=== PATIENT | female | born 1960 | race Caucasian/White ===

== ENCOUNTER 2019-05-02 20:18 | Observation (INO) ==
[2019-05-02] MEDS ORDERED: ZOFRAN IV ONE (20:22)
[2019-05-02] MEDS ORDERED: NS 1,000 ML IV ONE ×2 (20:22→22:49)
--- NOTE | 2019-05-02 20:29 | PROVIDER DOCUMENTATION ---
HPI-Syncope/Dizziness - General Chief Complaint: Nausea/Vomiting Stated Complaint: N/V Time Seen by Provider: 05/02/19 20:18 Source: patient Allergies/Adverse Reactions: Patient Allergies Allergy/AdvReac Type Severity Reaction Status Date / Time codeine AdvReac NAUSEA Verified 05/02/19 20:20 Home Medications: Home Medication List Medication Instructions Recorded Confirmed Last Taken Type Amlodipine Besylate 5 mg PO DAILY 06/11/17 05/03/19 Unknown History Lisinopril 40 mg PO DAILY 06/11/17 05/03/19 Unknown History Polyethylene Glycol 3350 [Miralax] 17 gm PO DAILY PRN PRN 05/03/19 05/03/19 Unknown History - History of Present Illness-Syncope/Dizzy Nature of Presenting Problem: 58 YOF PRESENTS WITH C/O N/V AND SYNCOPAL EPISODE X 2. SHE DENIES SOB, CP, FEVER, CHILLS, PALPITATIONS. If witnessed syncope, by whom?: NO WITNESS Onset/Duration: reports: just prior to arrival Timing: reports: still present Symptoms prior to episode: reports: nausea/vomiting, other (SYNCOPE) Context: reports: almost passed out Loss of Consciousness: no loss of consciousness Location of injury. (If syncope resulted in an injury.): reports: none Current Symptoms: reports: nausea, vomiting - Dizziness Severity in ED: reports: mild Dizziness Related Current/Associated Symptoms: reports: nausea/vomiting Any recent trauma/injury?: reports: none Modifying Factors: improves with: nothing Patient usually:: reports: walks without assistance Review of Systems - Adult - REVIEW OF SYSTEMS - ADULT Constitutional: reports: no symptoms reported. denies: see HPI, chills, fever, fatique, night sweats, weight gain, weight loss, other Eyes: reports: no symptoms reported. denies: see HPI, discharge, dry eyes, decreased vision, blurred vision, double vision, eye pain, redness, other Ears, Nose, Mouth & Throat: reports: no symptoms reported. denies: see HPI, ear discharge, ear pain, hearing loss, tinnitus, epistaxis, sinus problem, nose pain, loose teeth, mouth/dental pain, mouth swelling, hoarseness, throat pain, throat swelling, other Cardiovascular: reports: syncope. denies: no symptoms reported, see HPI, chest pain, edema, heart murmur, irregular heart rate, orthopnea, palpitations, poor circulation, PND, other Respiratory: reports: no symptoms reported. denies: see HPI, chronic cough, cough, dyspnea on exertion, excessive sputum production, hemoptysis, pleurisy, shortness of breath, wheezing, other Gastrointestinal: reports: nausea, vomiting. denies: no symptoms reported, see HPI, abdominal pain, hematemesis, constipation, diarrhea, difficulty swallowing, frequent heartburn, poor appetite, rectal bleeding, other Genitourinary: reports: no symptoms reported. denies: see HPI, dysuria, discharge, frequency, flank pain, frequent UTI's, hematuria, hesitency, incontinence, urinary retention, urgency, other Musculoskeletal: reports: no symptoms reported. denies: see HPI, bone pain, back pain, frequent leg cramps, joint pain, joint swelling, muscle aches, muscle weakness, neck pain, other Integumentary: reports: no symptoms reported. denies: see HPI, hives, hair loss, itching, mole changes, nail changes, rash, skin sores/ulcer, skin thickening, other Neurological: reports: dizziness/vertigo. denies: no symptoms reported, see HPI, ataxia, headache/migraines, loss of balance, numbness, paresthesia, seizure, slurred speech, syncope, tremors, other Psychiatric: reports: no symptoms reported. denies: see HPI, anxiety, anti- depressant use, alcohol/drug dependence, depression, emotional problems, insomnia, panic attacks, suicidal thoughts, other Endocrine: reports: no symptoms reported. denies: see HPI, change in skin pigment, excessive sweating, goiter, cold intolerance, heat intolerance, increased hunger, increased thirst, polyuria, other Hematologic/Lymphatic: reports: no symptoms reported. denies: see HPI, blood clots, easy bruising, low blood count, lymphedema, prolonged bleeding, swollen lymph nodes, transfusions, other Allergic/Immunologic: reports: no symptoms reported. denies: see HPI, allergic reactions, allergic rhinitis, asthma, eczema, food allergy, frequent infections, hay fever, hives, positive PPD, urticaria, other Past History - Adult - PAST MEDICAL HISTORY-ADULT Review of Records: reports: Nursing Assessment Review, Social history reviewed & non-contributory. Cardiovascular: reports: HTN Genitourinary: reports: kidney stones - PRIOR SURGERIES/PROCEDURES Surgical/Procedure History: reports: hysterectomy - IMMUNIZATION STATUS Childhood Immunizations: See Nurse Assessment Flu Vaccine: See Nurse Assessment Physical Exam-General - PHYSICAL EXAM-ADULT Initial Vital Signs Reviewed: Yes - CONSTITUTIONAL General Appearance: appears well, alert, no apparent distress - EYES Eyes: PERRL/EOMI - HEAD, EARS, NOSE, MOUTH & THROAT HENMT: normocephalic/atraumatic, moist mucous membranes, normal ENT inspection - NECK Neck: non-tender, full range of motion - RESPIRATORY Respiratory: chest non-tender, lungs clear, normal breath sounds, no pleuratic chest pain, no respiratory distress, no accessory muscle use - CARDIOVASCULAR Cardiovascular: normal peripheral pulses, regular rate, rhythm, no edema, no gallop, no JVD, no murmur - GASTROINTESTINAL (ABDOMEN) Abdominal Exam: normal bowel sounds, non tender, soft - LYMPHATIC Lymphatic: no adenopathy - MUSCULOSKELETAL Back Exam: normal inspection, no CVA tenderness, no vertebral tenderness Extremity: normal range of motion, non-tender, normal gait - SKIN Integumentary: normal color, normal turgor, warm/dry - NEUROLOGIC Neurologic: grossly normal - PSYCHIATRIC Psych/Mental Status: normal mood/affect, oriented x 3 Progress - PLAN OF CARE/RESULTS Progress/Plan/Lab Results: Laboratory Results - last 24 hr 05/02/19 05/02/19 05/02/19 20:20 20:20 20:20 WBC RBC Hgb Hct MCV MCH MCHC RDW Std Deviation Plt Count MPV Immature Gran % (Auto) Neut % (Auto) Lymph % (Auto) O'Brien % (Auto) Eos % (Auto) Baso % (Auto) Immature Gran # (Auto) Neut # (Auto) Lymph # (Auto) O'Brien # (Auto) Eos # (Auto) Baso # (Auto) Segmented Neutrophils PT INR PTT (Actin FS) 23.9 Sodium 140 Potassium 4.1 Chloride 102 Carbon Dioxide 19 L Anion Gap 18 BUN 15 Creatinine 0.6 Estimated GFR/1.73 m2 > 60 BUN/Creatinine Ratio 25 Glucose 164 H POC Glucose Calculated Osmolality 284 Calcium 9.7 Troponin T < 0.010 Urine Source Urine Color Urine Clarity Urine pH Ur Specific [place] Urine Protein Urine Ketones Urine Blood Urine Nitrite Urine Bilirubin Urine Urobilinogen Urine Microscopic RBC Urine WBC Urine Microscopic WBC Ur Epithelial Cells Urine Crystals Urine Bacteria Urine Casts Urine Yeast Urine Glucose Urine Opiates Screen Ur Oxycodone Screen Urine Methadone Screen U Propoxyphene Qual Ur Barbituates Screen Ur Tricyclics Screen Ur Phencyclidine Scrn Ur Amphetamines Screen U Methamphetamines Scrn U Benzodiazepines Scrn Urine Cocaine Screen U Cannabinoids Screen 05/02/19 05/02/19 05/02/19 20:20 20:20 20:28 WBC 11.01 H RBC 5.38 Hgb 16.1 H Hct 46.0 MCV 85.5 MCH 29.9 MCHC 35.0 RDW Std Deviation 12.7 Plt Count 281 MPV 10.2 Immature Gran % (Auto) 0.5 Neut % (Auto) 85.9 H Lymph % (Auto) 10.4 L O'Brien % (Auto) 3.0 Eos % (Auto) 0.0 Baso % (Auto) 0.2 Immature Gran # (Auto) 0.06 H Neut # (Auto) 9.45 H Lymph # (Auto) 1.15 L O'Brien # (Auto) 0.33 Eos # (Auto) 0.00 Baso # (Auto) 0.02 Segmented Neutrophils Not Reportable PT 11.9 INR 0.84 PTT (Actin FS) Sodium Potassium Chloride Carbon Dioxide Anion Gap BUN Creatinine Estimated GFR/1.73 m2 BUN/Creatinine Ratio Glucose POC Glucose 139 H Calculated Osmolality Calcium Troponin T Urine Source Urine Color Urine Clarity Urine pH Ur Specific [place] Urine Protein Urine Ketones Urine Blood Urine Nitrite Urine Bilirubin Urine Urobilinogen Urine Microscopic RBC Urine WBC Urine Microscopic WBC Ur Epithelial Cells Urine Crystals Urine Bacteria Urine Casts Urine Yeast Urine Glucose Urine Opiates Screen Ur Oxycodone Screen Urine Methadone Screen U Propoxyphene Qual Ur Barbituates Screen Ur Tricyclics Screen Ur Phencyclidine Scrn Ur Amphetamines Screen U Methamphetamines Scrn U Benzodiazepines Scrn Urine Cocaine Screen U Cannabinoids Screen 05/02/19 05/02/19 21:05 21:05 WBC RBC Hgb Hct MCV MCH MCHC RDW Std Deviation Plt Count MPV Immature Gran % (Auto) Neut % (Auto) Lymph % (Auto) O'Brien % (Auto) Eos % (Auto) Baso % (Auto) Immature Gran # (Auto) Neut # (Auto) Lymph # (Auto) O'Brien # (Auto) Eos # (Auto) Baso # (Auto) Segmented Neutrophils PT INR PTT (Actin FS) Sodium Potassium Chloride Carbon Dioxide Anion Gap BUN Creatinine Estimated GFR/1.73 m2 BUN/Creatinine Ratio Glucose POC Glucose Calculated Osmolality Calcium Troponin T Urine Source CLEAN CATCH Urine Color YELLOW Urine Clarity CLEAR Urine pH 8.0 Ur Specific [place] 1.010 Urine Protein TRACE A Urine Ketones 3+(Large) A Urine Blood TRACE Urine Nitrite NEGATIVE Urine Bilirubin NEGATIVE Urine Urobilinogen NORMAL Urine Microscopic RBC <10 Urine WBC NEGATIVE Urine Microscopic WBC <10 Ur Epithelial Cells >10 A Urine Crystals NONE SEEN Urine Bacteria 1+ Urine Casts NONE SEEN Urine Yeast NONE SEEN Urine Glucose NEGATIVE Urine Opiates Screen NONE DETECTED Ur Oxycodone Screen NONE DETECTED Urine Methadone Screen NONE DETECTED U Propoxyphene Qual NONE DETECTED Ur Barbituates Screen NONE DETECTED Ur Tricyclics Screen NONE DETECTED Ur Phencyclidine Scrn NONE DETECTED Ur Amphetamines Screen NONE DETECTED U Methamphetamines Scrn NONE DETECTED U Benzodiazepines Scrn NONE DETECTED Urine Cocaine Screen NONE DETECTED U Cannabinoids Screen NONE DETECTED Orders Category Date Time Status Admit - [facility] Routine AdmDCTranf 05/02/19 22:47 Active ED: Orthostatic Vital Signs (E DIRECTED Care 05/02/19 21:46 Completed FSBS [Finger Stick Blood Sugar (ED)] DIRECTED Care 05/02/19 20:23 Completed Neurological Check Q4H Care 05/02/19 22:49 Completed Saline Loc DIRECTED Care 05/02/19 22:49 Completed Saline Loc NOW Care 05/02/19 20:22 Completed Vital Signs Order Q 8-HR .ASSESS Care 05/02/19 22:49 Active Z-Document. for Tele Applied ORDERED Care 05/02/19 22:49 Completed Diabetic Diet Diet 05/02/19 22:[address] HEAD W/O CONTRAST [CT] Stat Exams 05/02/19 20:22 Completed BASIC METABOLIC PANEL [CHEM] Stat Lab 05/02/19 20:20 Completed CBC WITH ELECTRONIC DIFF [HEME] Stat Lab 05/02/19 20:20 Completed PT [PROTIME WITH INR] [COAG] Stat Lab 05/02/19 20:20 Completed PTT [COAG] Stat Lab 05/02/19 20:20 Completed TROPONIN T Q4HR Lab 05/03/19 00:56 Completed TROPONIN T Stat Lab 05/02/19 20:20 Completed UA NIMS W/REFLEX CULT PL [URINALYSIS] Stat Lab 05/02/19 21:05 Completed URINE DRUG SCREEN PL Stat Lab 05/02/19 21:05 Completed 0.9% Sodium Chloride Inj [Ns] 1,000 ml Med 05/02/19 22:49 Discontinued IV 75 mls/hr 0.9% Sodium Chloride Inj [Ns] 1,000 ml Med 05/02/19 20:22 Discontinued IV 999 mls/hr Ketorolac [Toradol] Med 05/02/19 22:49 Active 15 mg IV Q4H PRN PRN Ondansetron [Zofran] Med 05/02/19 20:22 Discontinued 4 mg IV NOW ONE Ondansetron [Zofran] Med 05/02/19 22:49 Discontinued 4 mg IV Q4H PRN PRN Telemetry [OM.EQ] Routine Oth 05/02/19 22:49 Active EKG [EKG] Stat Ther 05/02/19 20:23 Draft Transfer/Admit Order [TRANSFER] Routine Transfer 05/02/19 22:48 Completed Result Diagrams: 05/03/19 12:40 05/03/19 12:40 - REASSESSMENT Reassessment #1 Time Reassessed: 22:29 (PT REPORTS DIZZINESS RESOLVED WITH IVF. DENIES N/V AT THIS TIME ) Status: improving - EKG 1 Time of EKG reading by physician:: 21:21 EKG Read and Signed by:: Joni Toussaint EKG Interpretation (*Must complete 3 of following elements*): Normal Rate: 63 Rhythm: NSR [place]: normal QRS: normal SD Interval: normal ST Wave: normal - CT/MRI 1 CT Study: Head Impression: See EMR Report (CT HEAD W/O CONTRAST - 05/02/2019 INDICATION: SYNC OPE COMPARISON: None FINDINGS: The ventricles and sulci are normal in size and contour. No intracranial mass or hemorrhage. The skull is intact. The sinuses mastoids and middle ears are clear. IMPRESSION: Negative exam. This exam was performed using automated exposure control, adjustment of mA or kV according to patient size, and/or use of iterative reconstruction technique) Departure - Departure Date of Disposition Decision: 05/02/19 Time of Disposition Decision: 23:00 DIAGNOSIS: Syncope Disposition: ADMITTED INPATIENT 09 Certified Medical Emergency: Emergent Condition: Good - Critical Care Note This patient required my direct & personal management of CC.: No Attestation - Physician/ TENISHA Attestation Patient care was provided by Advanced Practice Provider:: Yes Advanced Practice Provider:: Swati Ku Advanced Practice Provider documentation review:: The Mid-level provider documentation, treatment plan and medical decision making was reviewed by the physician who agrees with all treatment and medical decision making by the MLP. The physician spent face to face time with patient:: No Advanced Practice Provider documentation review:: Supervising physician onsite and consulted in the evaluation and care of this patient. The physician did not have a face to face encounter with the patient.
[2019-05-02 20:34] LABS: BASO# 0.02 X1000 (0.0-0.2); BASO% 0.2 % (0.0-0.8); HEMOGLOBIN 16.1 g/dL (12.0-16.0); IMM GRAN# 0.06 X1000 (0.0-0.04); IMM GRAN% 0.5 % (0.0-0.5); LYMPH# 1.15 X1000 (1.2-3.4); LYMPH% 10.4 % (20.5-51.1); MCH 29.9 PG (27-31); MCV 85.5 FL (81-99); MONO# 0.33 X1000 (0.11-0.59); MPV 10.2 FL (7.4-10.4); NEUT# 9.45 X1000 (1.4-6.5); NEUT% 85.9 % (42.2-75.2); PLT 281 X1000 (130-400); RBC 5.38 XMIL (4.2-5.4); RDW 12.7 % (11.5-14.5); WBC 11.01 X1000 (4.8-10.8)
[2019-05-02 20:43] LABS: INR 0.84; PROTIME 11.9 Seconds (11.0-16.0)
[2019-05-02 20:47] LABS: AGAP 18; BUN 15 mg/dL (8-22); CALCIUM 9.7 mg/dL (8.8-10.2); CHLORIDE 102 mmol/L (98-107); COSMO 284; CREATININE 0.6 mg/dL (0.5-0.9); ESTIMATED GFR > 60; GLUCOSE 164 mg/dL (70-104); POTASSIUM 4.1 mmol/L (3.5-5.1); SODIUM 140 mmol/L (136-145); TCO2 19 mmol/L (25-35)
--- NOTE | 2019-05-02 20:49 | Diag Imaging Result Doc PS360 ---
CT HEAD W/O CONTRAST - 05/02/2019 INDICATION: SYNCOPE COMPARISON: None FINDINGS: The ventricles and sulci are normal in size and contour. No intracranial mass or hemorrhage. The skull is intact. The sinuses mastoids and middle ears are clear. IMPRESSION: Negative exam. This exam was performed using automated exposure control, adjustment of mA or kV according to patient size, and/or use of iterative reconstruction technique Electronically signed by Theron Juarez 05/02/2019 8:47 PM
[2019-05-02 21:20] LABS: BILIRUBIN URINE NEGATIVE (NEGATIVE); BLOOD URINE TRACE (NEGATIVE); CLARITY CLEAR (CLEAR); COLOR YELLOW; GLUCOSE URINE NEGATIVE (NEGATIVE); KETONE URINE 3+(Large) mg/dL (NEGATIVE); LEUKOCYTES URINE NEGATIVE (NEGATIVE); NITRITE URINE NEGATIVE (NEGATIVE); PROTEIN URINE TRACE mg/dL (NEGATIVE); UROBILINOGEN URINE NORMAL
[2019-05-02 21:29] LABS: UR AMPHETAMINES QUAL NONE DETECTED (NONE DETECT); UR BARBITUATES QUAL NONE DETECTED (NONE DETECT); UR BENZODIAZEPIN QUAL NONE DETECTED (NONE DETECT); UR COCAINE QUAL NONE DETECTED (NONE DETECT); UR METHADONE QUAL NONE DETECTED (NONE DETECT); UR METHAMPHETAMINE QUAL NONE DETECTED (NONE DETECT); UR OPIATES QUAL NONE DETECTED (NONE DETECT); UR OXYCODONE QUAL NONE DETECTED (NONE DETECT); UR PCP QUAL NONE DETECTED (NONE DETECT); UR PROPOXYPHENE QUAL NONE DETECTED (NONE DETECT); UR TCA QUAL NONE DETECTED (NONE DETECT)
[2019-05-02 21:30] LABS: UR CANNABINOIDS QUAL NONE DETECTED (NONE DETECT); URINE SOURCE CLEAN CATCH
[2019-05-02 21:32] LABS: URINE BACTERIA 1+ /HFP; URINE CAST NONE SEEN /LPF; URINE CRYSTAL NONE SEEN /HPF; URINE EPITHELIAL CELLS >10 /HPF (<10); URINE RBC <10 /HPF (<10); URINE WBC <10 /HPF (<10); URINE YEAST NONE SEEN /HPF
[2019-05-02] MEDS ORDERED: TORADOL IV PRN (22:49)
[2019-05-02] MEDS ORDERED: ZOFRAN IV PRN (22:49)
[2019-05-03] MEDS ORDERED: TYLENOL PO PRN (10:17)
[2019-05-03] MEDS ORDERED: ZOFRAN IV PRN (10:17)
--- NOTE | 2019-05-03 11:13 | EKG Report ---
Test Performed on : 05/02/2019 9:14:17 PM Test Reason : SYNCOPE Blood Pressure : / mmHG Vent. Rate : 063 BPM Atrial Rate : 063 BPM P-R Int : 130 ms QRS Dur : 076 ms QT Int : 464 ms P-R-T Axes : 053 006 037 degrees QTc Int : 474 ms Normal sinus rhythm. Normal ECG No previous ECGs available Unconfirmed Result
[2019-05-03] MEDS: PRINIVIL PO SCH (12:40)
[2019-05-03] MEDS: NS 1,000 ML IV SCH (12:41)
[2019-05-03 13:54] LABS: BASO# 0.02 X1000 (0.0-0.2); BASO% 0.2 % (0.0-0.8); EOS# 0.01 X1000 (0.0-0.7); EOS% 0.1 % (0.0-10.0); HEMATOCRIT 40.8 % (37.0-47.0); IMM GRAN# 0.03 X1000 (0.0-0.04); IMM GRAN% 0.3 % (0.0-0.5); LYMPH% 9.8 % (20.5-51.1); MCH 30.1 PG (27-31); MCHC 34.3 g/dL (33-37); MCV 87.7 FL (81-99); MONO# 0.97 X1000 (0.11-0.59); MONO% 8.6 % (1.7-9.3); NEUT# 9.15 X1000 (1.4-6.5); PLT 253 X1000 (130-400); RBC 4.65 XMIL (4.2-5.4); WBC 11.28 X1000 (4.8-10.8)
[2019-05-03 14:21] LABS: AGAP 12; ALBUMIN 3.8 g/dL (3.5-5.0); ALKALINE PHOSPHATASE 88 U/L (32-104); BUN 9 mg/dL (8-22); CALCIUM 8.9 mg/dL (8.8-10.2); CHLORIDE 108 mmol/L (98-107); CK PROFILE 55 U/L (24-173); COSMO 284; CREATININE 0.6 mg/dL (0.5-0.9); ESTIMATED GFR > 60; GLUCOSE 103 mg/dL (70-104); GOT 11 U/L (10-30); GPT 8 U/L (10-36); POTASSIUM 3.5 mmol/L (3.5-5.1); SODIUM 143 mmol/L (136-145); TCO2 23 mmol/L (25-35); TOTAL PROTEIN 6.5 g/dL (6.3-8.3)
--- NOTE | 2019-05-03 14:28 | HISTORY AND PHYSICAL ---
CHIEF COMPLAINT: Nausea, vomiting, and diarrhea. HISTORY OF PRESENT ILLNESS: This is a 58-year-old female who presented to the emergency room after having a sudden onset of nausea, vomiting, and diarrhea after eating at [employer]. She stated that symptoms increased. She developed weakness and she "passed out" while vomiting during 1 episode. She denied any injury. She denies any prior symptoms or any known sick contacts. PAST MEDICAL HISTORY: Kidney stones and hypertension. PAST SURGICAL HISTORY: Hysterectomy. SOCIAL HISTORY: She denies any alcohol, tobacco, or illicit drug use. ALLERGIES: Codeine which causes nausea. HOME MEDICATIONS: A list will be obtained by the nursing staff. Once verified, will review restarted as is appropriate. REVIEW OF SYSTEMS: Is discussed with patient with pertinent positives stated in the HPI. She denied any chest pain, palpitations, any fevers, chills, black or bloody vomitus or stools, any shortness of breath, cough, PND, orthopnea, any hematuria, dysuria, frequency, or urgency. PHYSICAL EXAMINATION: GENERAL: This is a 58-year-old female who is lying on the bed in no distress. VITAL SIGNS: Blood pressure is 138/67, with a heart rate of 58, respirations 18, temperature is 98.6 degrees oral, with room air saturations 99%. EYES: Pupils equal, round, react to light. EOMs are intact. Sclerae are anicteric. HENT: Head is normocephalic, atraumatic. Mucous membranes are moist. NECK: Supple with trachea midline. CARDIOVASCULAR: Regular rate and rhythm. S1 and S2 appreciated. She has no lower extremity edema. Calves are nontender bilateral with peripheral pulses palpable x4 extremities. PULMONARY: Breath sounds are clear with no increased work of breathing noted. Chest rises and falls symmetrically with respiration. GASTROINTESTINAL: Abdomen is soft, nontender, nondistended. Bowel sounds in all 4 quadrants. SKIN: Warm and dry. NEUROLOGIC: She is alert and oriented x3. LABS: WBC is 11, with hemoglobin 16.1, hematocrit 46, and platelets of 281,000. Sodium 140, potassium 4.1, BUN 15, creatinine 0.6, with a glucose of 164. Troponins were negative on multiple occasions. Urinalysis reveals 3+ ketones with greater than 10 epithelial cells; it is consistent with contamination. This is a clean-catch. Urine drug screen reveals none detected. CT of the head revealed negative exam. Ventricles and sulci are normal in size and contour. No intracranial mass or hemorrhage. The skull is intact. Sinuses, mastoids, and middle ears are clear. ASSESSMENT AND PLAN: 1. Nausea, vomiting, and diarrhea. This has resolved. 2. Dizziness, which resolved in the emergency room after a fluid bolus. 3. History of hypertension. 4. Mild leukocytosis. PLAN: The patient has been admitted to the medical-surgical floor, placed on telemetry which we will continue. We will do neuro checks. We will check orthostatic vital signs every shift and assess. We will continue with gentle IV hydration, Zofran for nausea. We will recheck a CBC, a CMP, cardiac profile, and troponin this morning. Further treatments pending hospital course. Dictated by MARIE Fernandez for Cuong Peterson MD cc: MARIE Fernandez MD
--- NOTE | 2019-05-03 14:30 | HISTORY AND PHYSICAL ---
ADDENDUM - SUBJECTIVE: The patient notes that she has been having nausea, vomiting, abdominal pain, has been getting dizzy and lightheaded and had fallen several times yesterday. She was seen through the ER and was given IV fluids and she notes that her symptoms have improved once she got 1 or 2 bags of IV fluids. Currently denies any dizziness or shortness of breath. Denies any chest pain, palpitations, but does state that she is still a little bit nauseated. Has not really been able to keep anything down. We will admit her and continue her on IV fluids and will adjust as needed. cc: Cuong Peterson MD
[2019-05-04] MEDS: NS 1,000 ML IV SCH ×2 (00:53→13:13)
[2019-05-04] MEDS: PRINIVIL PO SCH (08:39)
[2019-05-04 09:50] VITALS: BP 140/65
[2019-05-04] MEDS ORDERED: NS 1,000 ML IV SCH (12:15)
--- NOTE | 2019-05-05 07:43 | DISCHARGE SUMMARY ---
ADMISSION DATE: 05/02/2019 DISCHARGE DATE: 05/04/2019 PRIMARY CARE PHYSICIAN: None. ADMISSION DIAGNOSES: 1. Nausea, vomiting and diarrhea, resolved in the emergency room after fluid bolus. 2. History of hypertension. 3. Mild leukocytosis. DISCHARGE DIAGNOSES: 1. Nausea, vomiting and diarrhea, resolved. 2. Dizziness that resolved in the emergency room after fluid bolus. 3. History of hypertension. 4. Mild leukocytosis. SUMMARY OF FINDINGS: This is a 58-year-old female who presented to the emergency room after having a sudden onset of nausea, vomiting, and diarrhea after eating [employer]. States that the symptoms increased. She developed weakness and "passed out" while vomiting during one episode. She was admitted, and given a fluid bolus in the emergency room. The dizziness improved. She was placed on Zofran p.r.n., and has been able to tolerate a regular diet and it is now felt that she can safely be discharged home. DISCHARGE MEDICATIONS: She will continue her home medications of lisinopril 40 mg p.o. daily and MiraLAX 17 g p.o. daily p.r.n. FOLLOWUP: She will need to follow up with her primary care physician in 1 to 2 weeks, and call the office for an appointment. TIME SPENT: 33 minutes. Dictated by MARIE Velasquez for Michael Gutierrez MD Addendum: Patient seen and examined by myself. Agree with MARIE note. It reflects my assessment and plan. Patient is being discharged in stable condition. Will be seen by primary care doctor in a week. cc: MARIE Velasquez MD Stephen W. Harbin, MD MTDD
== END 2019-05-04 14:59 | disposition home or self-care (01) ==
LOC: P.ED 20:18 → SUATTDRO 23:10 → INTOOBSV 23:10 → P.MEDSURG 23:10
PROVIDERS: ATTEND Internal Medicine
CPT/HCPCS: 70450; 80048; 80053; 80104; 80301; 80305; 81001; 82550; 82948; 84484; 85025; 85610; 85730; 93005; A9270; G0431; G0434; G0477; J2405; J7030; XXXXX